=== PATIENT | female | born 1965 | race Caucasian/White ===

== ENCOUNTER 2016-09-24 19:29 | Emergency (ER) | payer MEDICAID ==
[~2016-09-24] VITALS: Ht 160 cm; Wt 50.0 kg
[~2016-09-24 19:29] MED LIST: IBUP800T PO
[2016-09-24] MEDS ORDERED: ACETAMINOPHEN 325 MG TABLET PO ONE (20:30)
[2016-09-24] MEDS ORDERED: KETOROLAC 30 MG/1 ML IVPush ONE (20:30)
[2016-09-24 20:38] LABS: HEMOGLOBIN 11.4 g/dL (11.7-16.4)
[2016-09-24 20:42] LABS: BLOOD UREA NITROGEN 24 mg/dL (7-18)
[2016-09-24] MEDS ORDERED: KETOROLAC 30 MG/1 ML ONE (20:43)
[2016-09-24] MEDS ORDERED: ACETAMINOPHEN 325 MG TABLET ONE (20:43)
[2016-09-24 21:38] VITALS: BP 98/51
[2016-09-24] MEDS ORDERED: FLUO10CA13 PO (23:17)
[2016-09-24] MEDS ORDERED: BACL-19 PO (23:17)
[2016-09-24] MEDS ORDERED: GABA300C10 PO (23:17)
== END 2016-09-24 21:39 | disposition home or self-care (01) ==
LOC: ED 20:28
DX: R56.9 Unspecified convulsions (principal); S09.90XA Unspecified injury of head, initial encounter
CPT/HCPCS: 36415; 80048; 82962; 85025; 96374; 99284; J1885

== ENCOUNTER 2016-11-19 00:05 | Emergency (ER) | payer MEDICAID ==
[~2016-11-19] VITALS: Ht 157.5 cm; Wt 49.4 kg
[~2016-11-19 00:05] MED LIST changes: +BACL-19 PO; +FLUO10CA13 PO; +GABA300C10 PO
[2016-11-19 00:08] VITALS: BP 127/82
[2016-11-19] MEDS ORDERED: LORazepam 1MG TABLET ONE (00:30)
[2016-11-19] MEDS ORDERED: HYDROcodone/APAP 5/325 TABLET PO ONE (00:30)
[2016-11-19] MEDS ORDERED: LORazepam 1MG TABLET PO ONE (00:30)
[2016-11-19] MEDS ORDERED: HYDROcodone/APAP 5/325 TABLET ONE (00:31)
[2016-11-20] MEDS ORDERED: GABA100C PO (14:05)
[2016-11-20] MEDS ORDERED: OXYC-302 PO (14:05)
[2016-11-20] MEDS ORDERED: DIAZ5TAB PO (14:05)
== END 2016-11-19 00:58 | disposition home or self-care (01) ==
LOC: ED 00:37
DX: F41.1 Generalized anxiety disorder (principal); F32.9 Major depressive disorder, single episode, unspecified; F17.210 Nicotine dependence, cigarettes, uncomplicated; F12.10 Cannabis abuse, uncomplicated; Z90.710 Acquired absence of both cervix and uterus; Z88.6 Allergy status to analgesic agent
CPT/HCPCS: 99284

== ENCOUNTER 2016-11-20 13:45 | Emergency (ER) | payer MEDICAID ==
[~2016-11-20] VITALS: Ht 152.4 cm; Wt 51.6 kg
[2016-11-20] MEDS ORDERED: DIAZ5TAB PO (14:05)
[2016-11-20] MEDS ORDERED: GABA100C PO (14:05)
[2016-11-20] MEDS ORDERED: OXYC-302 PO (14:05)
[2016-11-20] MEDS ORDERED: LORazepam 1MG TABLET ONE (14:10)
[2016-11-20 14:28] VITALS: BP 97/63
[2016-11-20] MEDS ORDERED: LORazepam 1MG TABLET PO ONE (14:30)
== END 2016-11-20 14:31 | disposition home or self-care (01) ==
LOC: ED 14:15
DX: G89.29 Other chronic pain (principal); M54.2 Cervicalgia; F41.1 Generalized anxiety disorder; F43.12 Post-traumatic stress disorder, chronic; Z59.0 Homelessness
CPT/HCPCS: 99281; 99282

== ENCOUNTER 2016-12-06 08:16 | Emergency (ER) | payer MEDICAID ==
[~2016-12-06] VITALS: Ht 157.5 cm; Wt 51.3 kg
[~2016-12-06 08:16] MED LIST changes: +DIAZ5TAB PO; +GABA100C PO; +OXYC-302 PO
[2016-12-06] MEDS ORDERED: KETOROLAC 30 MG/1 ML ONE (09:23)
[2016-12-06] MEDS ORDERED: CYCLOBENZAPRINE 10 MG TABLET ONE (09:23)
[2016-12-06] MEDS ORDERED: KETOROLAC 60 MG/2 ML IM ONE (09:30)
[2016-12-06] MEDS ORDERED: CYCLOBENZAPRINE 10 MG TABLET PO ONE (09:30)
[2016-12-06 09:50] LABS: BLOOD UREA NITROGEN 17 mg/dL (7-18)
[2016-12-06 09:55] LABS: IS PT STATUS REG ER OR PRE ER? YES
[2016-12-06 11:02] VITALS: BP 108/64
== END 2016-12-06 11:46 | disposition home or self-care (01) ==
LOC: ED 09:38
DX: R07.89 Other chest pain (principal); I25.2 Old myocardial infarction
CPT/HCPCS: 36415; 71010; 80048; 82040; 84484; 85025; 85379; 93005; 96372; 99285; J1885

== ENCOUNTER 2016-12-18 21:14 | Emergency (ER) | payer MEDICAID ==
[~2016-12-18] VITALS: Ht 157.5 cm; Wt 44.8 kg
[2016-12-18] MEDS ORDERED: SODIUM CHLORIDE FLUSH 10ML SYR IVF ONE (21:30)
[2016-12-18] MEDS ORDERED: LEVETIRACETAM 500 MG in SODIUM CHLORIDE 0.9% 100 ML IV ONE (21:30)
[2016-12-18] MEDS ORDERED: SODIUM CHLORIDE 0.9% 1,000ML IVBOLUS ONE (21:30)
[2016-12-18 21:54] LABS: ASPARTATE AMINO TRANSFERASE 16 U/L (15-37); BLOOD UREA NITROGEN 26 mg/dL (7-18)
[2016-12-18 23:39] VITALS: BP 122/64
== END 2016-12-18 23:41 | disposition home or self-care (01) ==
LOC: ED 21:22
DX: R56.9 Unspecified convulsions (principal); Z90.710 Acquired absence of both cervix and uterus
CPT/HCPCS: 36415; 70450; 80053; 80307; 85025; 93005; 96365; 96366; 99285; J1953; J7030

== ENCOUNTER 2016-12-20 17:04 | Emergency (ER) | payer MEDICAID ==
[~2016-12-20] VITALS: Ht 167.6 cm; Wt 60.0 kg
[2016-12-20] MEDS ORDERED: LEVETIRACETAM 500 MG TABLET PO SCH (17:30)
[2016-12-20] MEDS ORDERED: SODIUM CHLORIDE FLUSH 10ML SYR IVF ONE (17:30)
[2016-12-20] MEDS ORDERED: SODIUM CHLORIDE 0.9% 1,000ML IVBOLUS ONE (17:30)
[2016-12-20 17:39] LABS: BLOOD UREA NITROGEN 41 mg/dL (7-18)
[2016-12-20 18:27] VITALS: BP 107/67
== END 2016-12-20 18:45 | disposition home or self-care (01) ==
LOC: ED 18:30
DX: G40.409 Other generalized epilepsy and epileptic syndromes, not intractable, without status epilepticus (principal); E86.0 Dehydration; F17.200 Nicotine dependence, unspecified, uncomplicated; Z90.710 Acquired absence of both cervix and uterus
CPT/HCPCS: 36415; 80048; 82040; 85025; 96360; 99284; J7030

== ENCOUNTER 2017-02-06 10:48 | Emergency (ER) | payer MEDICAID ==
[~2017-02-06] VITALS: Ht 160 cm; Wt 57.0 kg
[2017-02-06] MEDS ORDERED: SODIUM CHLORIDE 0.9% 1,000 ML IV ONE (10:51)
[2017-02-06] MEDS ORDERED: LEVETIRACETAM 500 MG in SODIUM CHLORIDE 0.9% 100 ML IV ONE (11:00)
[2017-02-06] MEDS ORDERED: LORazepam 2 MG/ML, 1ML IVPush ONE (11:00)
[2017-02-06] MEDS ORDERED: PROP10TA PO (11:08)
[2017-02-06] MEDS ORDERED: BACL-19 PO (11:08)
[2017-02-06] MEDS ORDERED: SERT25TA PO (11:08)
[2017-02-06] MEDS ORDERED: TRAZ100T15 PO (11:08)
[2017-02-06] MEDS ORDERED: LEVE500T53 PO (11:08)
[2017-02-06] MEDS ORDERED: CLON1TAB PO (11:08)
[2017-02-06 11:53] LABS: HEMATOCRIT 34.1 % (34.6-47.8); HEMOGLOBIN 11.3 g/dL (11.7-16.4)
[2017-02-06 12:02] LABS: ASPARTATE AMINO TRANSFERASE 25 U/L (15-37); BLOOD UREA NITROGEN 13 mg/dL (7-18)
[2017-02-06 12:08] LABS: ACETAMINOPHEN < 2 mcg/mL (10-30)
[2017-02-06] MEDS ORDERED: SODIUM CHLORIDE 0.9%, 500ML IVBOLUS ONE (12:30)
[2017-02-06] MEDS ORDERED: LIDOCAINE 1%, 20ML ONE (13:21)
[2017-02-06] MEDS ORDERED: TRIAMCINOLONE ACETONIDE 40 MG/ML, 1ML IM ONE (13:30)
[2017-02-06 13:42] VITALS: BP 137/82
== END 2017-02-06 14:02 | disposition home or self-care (01) ==
LOC: ED 13:01
DX: R56.9 Unspecified convulsions (principal); I10 Essential (primary) hypertension; F17.200 Nicotine dependence, unspecified, uncomplicated; Z88.6 Allergy status to analgesic agent
CPT/HCPCS: 36415; 70450; 80053; 80307; 80329; 83605; 83735; 85025; 93005; 96365; 96375; 99285; J1953; J2060; J7030; G0480

== ENCOUNTER 2017-04-10 00:42 | Emergency (ER) | payer MEDICAID ==
[~2017-04-10] VITALS: Ht 157.5 cm; Wt 51.0 kg
[~2017-04-10 00:42] MED LIST changes: +CLON1TAB PO; +IBUP-1223 PO; -IBUP800T PO; +LEVE500T53 PO; +PROP10TA PO; +SERT25TA PO; +TRAZ100T15 PO
[2017-04-10] MEDS ORDERED: LORazepam 2 MG/ML, 1ML IM STA (01:34)
[2017-04-10] MEDS ORDERED: LORazepam 2 MG/ML, 1ML ONE (01:38)
[2017-04-10 03:11] VITALS: BP 117/86
== END 2017-04-10 03:48 ==
LOC: ED 02:40
DX: S20.211A Contusion of right front wall of thorax, initial encounter (principal); G40.909 Epilepsy, unspecified, not intractable, without status epilepticus; I10 Essential (primary) hypertension; F17.210 Nicotine dependence, cigarettes, uncomplicated; F43.10 Post-traumatic stress disorder, unspecified; Y04.8XXA Assault by other bodily force, initial encounter; Y93.89 Activity, other specified; Y99.8 Other external cause status; Y92.89 Other specified places as the place of occurrence of the external cause
CPT/HCPCS: 70450; 70486; 71101; 72125; 96374; 99284; J2060

== ENCOUNTER 2017-06-02 21:41 | Emergency (ER) | payer MEDICAID ==
[~2017-06-02] VITALS: Ht 157.5 cm; Wt 57.6 kg
[2017-06-02 21:42] VITALS: BP 170/93
== END 2017-06-02 22:33 | disposition home or self-care (01) ==
LOC: ED 22:09
DX: F41.1 Generalized anxiety disorder (principal); Z76.0 Encounter for issue of repeat prescription; F32.9 Major depressive disorder, single episode, unspecified; G35 Multiple sclerosis; G40.909 Epilepsy, unspecified, not intractable, without status epilepticus; I10 Essential (primary) hypertension
CPT/HCPCS: 99284

== ENCOUNTER 2017-10-24 13:14 | Observation (INO) | payer MEDICAID ==
[~2017-10-24] VITALS: Ht 157.5 cm; Wt 59.9 kg
[2017-10-24] MEDS ORDERED: LORazepam 1MG TABLET ONE ×2 (14:18→16:06)
[2017-10-24] MEDS ORDERED: LORazepam 1MG TABLET PO ONE ×2 (14:30→16:00)
[2017-10-24 14:36] LABS: BASOPHILS # (AUTO) 0.01 x10^3/uL (0-0.1); BASOPHILS % (AUTO) 0 % (0-1); EOSINOPHILS # (AUTO) 0.13 x10^3/uL (0-0.4); EOSINOPHILS % (AUTO) 3 % (1-7); LYMPHOCYTES # (AUTO) 1.02 x10^3/uL (1-3.4); LYMPHOCYTES % (AUTO) 19 % (22-44); MD NO; MEAN CORPUSCULAR HEMOGLOBIN 29.9 pg (27.0-34.8); MEAN CORPUSCULAR HGB CONC 33.3 g/dL (32.4-35.8); MEAN CORPUSCULAR VOLUME 89.9 fL (80-100); MEAN PLATELET VOLUME 6.1 fL (7.4-10.4); MONOCYTES # (AUTO) 0.32 x10^3/uL (0.2-0.8); MONOCYTES % (AUTO) 6 % (2-9); NEUTROPHILS # (AUTO) 3.84 x10^3/uL (1.8-6.8); NEUTROPHILS % (AUTO) 72 % (42-75); PLATELET COUNT 288 x10^3/uL (130-400); RED BLOOD COUNT 3.91 x10^6/uL (3.82-5.3)
[2017-10-24 14:44] LABS: ALANINE AMINOTRANSFERASE 123 U/L (12-78); ALBUMIN 3.5 g/dL (3.4-5.0); ANION GAP 9 mmol/L (5-15); CALCIUM 8.8 mg/dL (8.5-10.1); CHLORIDE 104 mmol/L (98-107); CREATININE 0.75 mg/dL (0.55-1.02)
[2017-10-24 14:46] LABS: ALKALINE PHOSPHATASE 244 U/L (45-117); BILIRUBIN,TOTAL 0.3 mg/dL (0.2-1.0); SALICYLATE LEVEL 4.5 mg/dL (2.8-20.0); TOTAL PROTEIN 6.8 g/dL (6.4-8.2)
[2017-10-24 14:54] LABS: ACETAMINOPHEN < 2 mcg/mL (10-30)
[2017-10-24 15:04] LABS: AMPHETAMINE SCREEN, URINE Positive (Negative); BARBITURATE SCREEN, URINE Negative (Negative); BENZODIAZEPINE SCREEN, URINE Negative (Negative); CANNABINOID SCREEN, URINE Positive (Negative); COCAINE SCREEN, URINE Negative (Negative); METHADONE SCREEN, URINE Negative (Negative); OPIATE SCREEN, URINE Negative (Negative)
[2017-10-24] MEDS ORDERED: QUET50TA5 PO (15:06)
[2017-10-24] MEDS ORDERED: BUSP10TA PO (15:06)
[2017-10-24] MEDS ORDERED: [UNRECOGNIZED DRUG - CODE] PO (15:06)
[2017-10-24] MEDS ORDERED: PHEN50TA4 PO (15:06)
[2017-10-24] MEDS ORDERED: ESCI20TA PO (15:06)
[2017-10-24] MEDS ORDERED: GABA800T2 PO (15:06)
[2017-10-24] MEDS ORDERED: DICL50TA4 PO (15:06)
[2017-10-24] MEDS ORDERED: CARB200T4 PO (15:06)
[2017-10-24] MEDS ORDERED: DOXE150C PO (15:06)
[2017-10-24] MEDS ORDERED: PRAZ2CAP2 PO (15:06)
[2017-10-24] MEDS ORDERED: POLYETHYLENE GLYCOL 17 GM PACKET PO PRN (20:00)
[2017-10-24] MEDS ORDERED: BISACODYL 10 MG SUPP PR PRN (20:00)
[2017-10-24] MEDS ORDERED: ACETAMINOPHEN 325 MG TABLET PO PRN (20:00)
[2017-10-24] MEDS ORDERED: ONDANSETRON ODT 4 MG PO PRN (20:00)
[2017-10-24] MEDS ORDERED: DIPHENHYDRAMINE 50 MG CAPSULE PO PRN (20:00)
[2017-10-24] MEDS: BACLOFEN 10 MG TABLET PO SCH (21:00)
[2017-10-24] MEDS: DOXEPIN 25 MG CAPSULE PO SCH (21:00)
[2017-10-24] MEDS: PRAZOSIN 2 MG CAPSULE PO SCH (21:00)
[2017-10-24] MEDS ORDERED: QUETIAPINE FUMARATE 50 MG PO SCH (21:00)
[2017-10-24] MEDS: CARBAMAZEPINE 200 MG TABLET PO SCH (21:00)
[2017-10-24] MEDS: DICLOFENAC 50 MG TABLET.DR PO SCH (21:00)
[2017-10-24] MEDS: BUSPIRONE 10 MG TABLET PO SCH (21:00)
[2017-10-24] MEDS ORDERED: TEMPLATE NON-FORMULARY MED. (Gabapentin** 800 MG) PO SCH (21:00)
[2017-10-24] MEDS: NICOTINE 7 MG/24 HR PATCH.TD24 TD SCH (23:00)
[2017-10-24] MEDS ORDERED: NICOTINE 7 MG/24 HR PATCH.TD24 ONE (23:04)
[2017-10-24] MEDS ORDERED: GABAPENTIN 400 MG CAPSULE ONE (23:07)
[2017-10-24] MEDS ORDERED: QUETIAPINE 25MG TABLET ONE (23:07)
[2017-10-25] MEDS ORDERED: CARBAMAZEPINE PO SCH (09:00)
[2017-10-25] MEDS: CITALOPRAM 20 MG TABLET PO SCH (10:06)
[2017-10-25] MEDS: SENNA/DOCUSATE TABLET PO SCH (10:06)
[2017-10-25] MEDS: BUSPIRONE 10 MG TABLET PO SCH ×2 (10:09→17:27)
[2017-10-25] MEDS: DICLOFENAC 50 MG TABLET.DR PO SCH (10:09)
[2017-10-25] MEDS: BACLOFEN 10 MG TABLET PO SCH ×2 (10:09→17:27)
[2017-10-25] MEDS: CARBAMAZEPINE 200 MG TABLET PO SCH ×2 (10:09→21:32)
[2017-10-25] MEDS ORDERED: GABAPENTIN 400 MG CAPSULE ONE (10:17)
[2017-10-25] MEDS: GABAPENTIN 400 MG CAPSULE PO SCH ×2 (10:20→17:28)
[2017-10-25] MEDS ORDERED: LORazepam 1MG TABLET ONE (13:51)
[2017-10-25] MEDS ORDERED: LORazepam 1MG TABLET PO ONE (14:00)
[2017-10-25 16:03] VITALS: BP 97/64
[2017-10-25 19:54] VITALS: BP 100/70
[2017-10-25] MEDS: DOXEPIN 25 MG CAPSULE PO SCH (21:31)
[2017-10-25] MEDS: QUETIAPINE 25MG TABLET PO SCH (21:32)
[2017-10-25] MEDS: PRAZOSIN 2 MG CAPSULE PO SCH (21:33)
[2017-10-26] MEDS: NICOTINE 7 MG/24 HR PATCH.TD24 TD SCH ×2 (00:40→21:30)
[2017-10-26] MEDS: BACLOFEN 10 MG TABLET PO SCH ×4 (00:40→21:27)
[2017-10-26] MEDS: GABAPENTIN 400 MG CAPSULE PO SCH ×4 (00:41→21:28)
[2017-10-26] MEDS: DICLOFENAC 50 MG TABLET.DR PO SCH ×3 (00:41→21:27)
[2017-10-26] MEDS: BUSPIRONE 10 MG TABLET PO SCH ×4 (00:41→21:29)
[2017-10-26 08:34] VITALS: BP 104/63
[2017-10-26] MEDS: CARBAMAZEPINE 200 MG TABLET PO SCH ×2 (08:50→21:27)
[2017-10-26] MEDS: SENNA/DOCUSATE TABLET PO SCH (08:50)
[2017-10-26] MEDS: LORazepam 1MG TABLET PO PRN ×2 (08:50→17:04)
[2017-10-26] MEDS: CITALOPRAM 20 MG TABLET PO SCH (09:43)
[2017-10-26 19:55] VITALS: BP 128/68
[2017-10-26] MEDS: DOXEPIN 25 MG CAPSULE PO SCH (21:26)
[2017-10-26] MEDS: QUETIAPINE 25MG TABLET PO SCH (21:27)
[2017-10-26] MEDS: PRAZOSIN 2 MG CAPSULE PO SCH (21:28)
[2017-10-27] MEDS: BACLOFEN 10 MG TABLET PO SCH ×3 (08:10→21:24)
[2017-10-27] MEDS: DICLOFENAC 50 MG TABLET.DR PO SCH ×2 (08:10→21:25)
[2017-10-27] MEDS: CITALOPRAM 20 MG TABLET PO SCH (08:10)
[2017-10-27] MEDS: GABAPENTIN 400 MG CAPSULE PO SCH ×3 (08:10→21:25)
[2017-10-27] MEDS: BUSPIRONE 10 MG TABLET PO SCH ×3 (08:10→21:25)
[2017-10-27] MEDS: CARBAMAZEPINE 200 MG TABLET PO SCH ×2 (08:11→21:25)
[2017-10-27] MEDS: SENNA/DOCUSATE TABLET PO SCH (08:11)
[2017-10-27] MEDS: LORazepam 1MG TABLET PO PRN ×2 (08:13→16:26)
[2017-10-27 08:15] VITALS: BP 113/73
[2017-10-27] MEDS: NICOTINE 7 MG/24 HR PATCH.TD24 TD SCH (20:00)
[2017-10-27 20:31] VITALS: BP 100/61
[2017-10-27] MEDS: DOXEPIN 25 MG CAPSULE PO SCH (21:24)
[2017-10-27] MEDS: QUETIAPINE 25MG TABLET PO SCH (21:25)
[2017-10-27] MEDS: PRAZOSIN 2 MG CAPSULE PO SCH (21:25)
[2017-10-28 07:58] VITALS: BP 110/61
[2017-10-28] MEDS: LORazepam 1MG TABLET PO PRN ×2 (08:08→16:28)
[2017-10-28] MEDS: DICLOFENAC 50 MG TABLET.DR PO SCH ×2 (08:08→20:31)
[2017-10-28] MEDS: BUSPIRONE 10 MG TABLET PO SCH ×3 (08:08→20:30)
[2017-10-28] MEDS: GABAPENTIN 400 MG CAPSULE PO SCH ×3 (08:08→20:31)
[2017-10-28] MEDS: CARBAMAZEPINE 200 MG TABLET PO SCH ×2 (08:08→20:33)
[2017-10-28] MEDS: BACLOFEN 10 MG TABLET PO SCH ×3 (08:08→20:30)
[2017-10-28] MEDS: CITALOPRAM 20 MG TABLET PO SCH (08:08)
[2017-10-28] MEDS: SENNA/DOCUSATE TABLET PO SCH (08:09)
[2017-10-28 20:18] VITALS: BP 140/96
[2017-10-28] MEDS: NICOTINE 7 MG/24 HR PATCH.TD24 TD SCH (20:22)
[2017-10-28] MEDS: QUETIAPINE 25MG TABLET PO SCH (20:32)
[2017-10-28] MEDS: PRAZOSIN 2 MG CAPSULE PO SCH (20:47)
[2017-10-28] MEDS: DOXEPIN 25 MG CAPSULE PO SCH (21:00)
[2017-10-29 08:00] VITALS: BP 98/64
[2017-10-29] MEDS: BUSPIRONE 10 MG TABLET PO SCH ×3 (08:08→20:24)
[2017-10-29] MEDS: CITALOPRAM 20 MG TABLET PO SCH (08:08)
[2017-10-29] MEDS: CARBAMAZEPINE 200 MG TABLET PO SCH ×2 (08:09→20:26)
[2017-10-29] MEDS: BACLOFEN 10 MG TABLET PO SCH ×3 (08:09→20:24)
[2017-10-29] MEDS: SENNA/DOCUSATE TABLET PO SCH (08:09)
[2017-10-29] MEDS: GABAPENTIN 400 MG CAPSULE PO SCH ×3 (08:09→20:25)
[2017-10-29] MEDS: DICLOFENAC 50 MG TABLET.DR PO SCH ×2 (08:09→20:26)
[2017-10-29] MEDS: LORazepam 1MG TABLET PO PRN ×2 (08:13→18:13)
[2017-10-29 19:49] VITALS: BP 100/64
[2017-10-29] MEDS: NICOTINE 7 MG/24 HR PATCH.TD24 TD SCH (19:54)
[2017-10-29] MEDS: PRAZOSIN 2 MG CAPSULE PO SCH (20:25)
[2017-10-29] MEDS: QUETIAPINE 25MG TABLET PO SCH (20:26)
[2017-10-29] MEDS: DOXEPIN 25 MG CAPSULE PO SCH (20:29)
[2017-10-30 07:45] VITALS: BP 145/82
[2017-10-30] MEDS: DICLOFENAC 50 MG TABLET.DR PO SCH ×2 (08:44→20:20)
[2017-10-30] MEDS: SENNA/DOCUSATE TABLET PO SCH (08:44)
[2017-10-30] MEDS: CARBAMAZEPINE 200 MG TABLET PO SCH ×2 (08:44→20:20)
[2017-10-30] MEDS: GABAPENTIN 400 MG CAPSULE PO SCH ×3 (08:44→20:18)
[2017-10-30] MEDS: CITALOPRAM 20 MG TABLET PO SCH (08:44)
[2017-10-30] MEDS: BUSPIRONE 10 MG TABLET PO SCH ×3 (08:44→20:16)
[2017-10-30] MEDS: BACLOFEN 10 MG TABLET PO SCH ×3 (08:44→20:17)
[2017-10-30] MEDS: LORazepam 1MG TABLET PO PRN (09:48)
[2017-10-30 19:45] VITALS: BP 116/78
[2017-10-30] MEDS: NICOTINE 7 MG/24 HR PATCH.TD24 TD SCH (19:59)
[2017-10-30] MEDS: PRAZOSIN 2 MG CAPSULE PO SCH (20:17)
[2017-10-30] MEDS: DOXEPIN 25 MG CAPSULE PO SCH (20:19)
[2017-10-30] MEDS: QUETIAPINE 25MG TABLET PO SCH (20:23)
[2017-10-31 06:48] LABS: ALANINE AMINOTRANSFERASE 33 U/L (12-78); ALBUMIN 3.4 g/dL (3.4-5.0); ANION GAP 4 mmol/L (5-15); CALCIUM 9.1 mg/dL (8.5-10.1); CHLORIDE 105 mmol/L (98-107); CREATININE 0.83 mg/dL (0.55-1.02)
[2017-10-31 06:51] LABS: ALKALINE PHOSPHATASE 177 U/L (45-117); BILIRUBIN,TOTAL 0.2 mg/dL (0.2-1.0); TOTAL PROTEIN 7.2 g/dL (6.4-8.2)
[2017-10-31 07:35] VITALS: BP 91/46
[2017-10-31 08:40] VITALS: BP 116/80
[2017-10-31] MEDS: DICLOFENAC 50 MG TABLET.DR PO SCH ×2 (09:01→21:38)
[2017-10-31] MEDS: CARBAMAZEPINE 200 MG TABLET PO SCH ×2 (09:01→21:38)
[2017-10-31] MEDS: BUSPIRONE 10 MG TABLET PO SCH ×3 (09:01→21:38)
[2017-10-31] MEDS: BACLOFEN 10 MG TABLET PO SCH ×3 (09:01→21:37)
[2017-10-31] MEDS: CITALOPRAM 20 MG TABLET PO SCH (09:02)
[2017-10-31] MEDS: SENNA/DOCUSATE TABLET PO SCH (09:02)
[2017-10-31] MEDS: GABAPENTIN 400 MG CAPSULE PO SCH ×3 (09:02→21:37)
[2017-10-31] MEDS: LORazepam 1MG TABLET PO PRN (15:44)
[2017-10-31] MEDS ORDERED: SODIUM POLYSTYRENE SULFONATE ORAL SUSP PO ONE (19:00)
[2017-10-31 19:41] LABS: ANION GAP 6 mmol/L (5-15); CHLORIDE 108 mmol/L (98-107); CREATININE 0.73 mg/dL (0.55-1.02)
[2017-10-31 19:47] VITALS: BP_SYST 109; BP_SYST 132; BP_DIAS 72; BP_DIAS 85
[2017-10-31] MEDS: NICOTINE 7 MG/24 HR PATCH.TD24 TD SCH (21:37)
[2017-10-31] MEDS: DOXEPIN 25 MG CAPSULE PO SCH (21:37)
[2017-10-31] MEDS: PRAZOSIN 2 MG CAPSULE PO SCH (21:38)
[2017-10-31] MEDS: QUETIAPINE 25MG TABLET PO SCH (21:39)
[2017-11-01 04:46] LABS: ANION GAP 6 mmol/L (5-15); CALCIUM 8.8 mg/dL (8.5-10.1); CHLORIDE 104 mmol/L (98-107); CREATININE 0.68 mg/dL (0.55-1.02)
[2017-11-01 07:43] VITALS: BP 118/68
[2017-11-01] MEDS: BACLOFEN 10 MG TABLET PO SCH ×3 (08:02→20:53)
[2017-11-01] MEDS: CITALOPRAM 20 MG TABLET PO SCH (08:02)
[2017-11-01] MEDS: GABAPENTIN 400 MG CAPSULE PO SCH ×3 (08:02→20:53)
[2017-11-01] MEDS: CARBAMAZEPINE 200 MG TABLET PO SCH ×2 (08:02→20:55)
[2017-11-01] MEDS: DICLOFENAC 50 MG TABLET.DR PO SCH ×2 (08:02→20:55)
[2017-11-01] MEDS: SENNA/DOCUSATE TABLET PO SCH (08:03)
[2017-11-01] MEDS: BUSPIRONE 10 MG TABLET PO SCH ×3 (08:03→20:52)
[2017-11-01] MEDS: LORazepam 1MG TABLET PO PRN (08:21)
[2017-11-01 20:00] VITALS: BP 129/72
[2017-11-01] MEDS: NICOTINE 7 MG/24 HR PATCH.TD24 TD SCH (20:00)
[2017-11-01] MEDS: DOXEPIN 25 MG CAPSULE PO SCH (20:54)
[2017-11-01] MEDS: QUETIAPINE 25MG TABLET PO SCH (20:54)
[2017-11-01] MEDS: PRAZOSIN 2 MG CAPSULE PO SCH (20:57)
[2017-11-02 07:40] VITALS: BP 152/75
[2017-11-02] MEDS: CITALOPRAM 20 MG TABLET PO SCH (08:42)
[2017-11-02] MEDS: CARBAMAZEPINE 200 MG TABLET PO SCH ×2 (08:42→20:29)
[2017-11-02] MEDS: DICLOFENAC 50 MG TABLET.DR PO SCH ×2 (08:42→20:30)
[2017-11-02] MEDS: LORazepam 1MG TABLET PO PRN ×2 (08:42→17:31)
[2017-11-02] MEDS: SENNA/DOCUSATE TABLET PO SCH (08:44)
[2017-11-02] MEDS: BACLOFEN 10 MG TABLET PO SCH ×3 (08:44→20:27)
[2017-11-02] MEDS: BUSPIRONE 10 MG TABLET PO SCH ×3 (08:44→20:27)
[2017-11-02] MEDS: GABAPENTIN 400 MG CAPSULE PO SCH ×3 (08:44→20:28)
[2017-11-02 19:30] VITALS: BP 120/73
[2017-11-02] MEDS: NICOTINE 7 MG/24 HR PATCH.TD24 TD SCH (19:31)
[2017-11-02] MEDS: PRAZOSIN 2 MG CAPSULE PO SCH (20:27)
[2017-11-02] MEDS: QUETIAPINE 25MG TABLET PO SCH (20:28)
[2017-11-02] MEDS: DOXEPIN 25 MG CAPSULE PO SCH (20:29)
[2017-11-03] MEDS: LORazepam 1MG TABLET PO PRN ×2 (03:05→09:24)
[2017-11-03 08:25] VITALS: BP 123/67
[2017-11-03] MEDS: CARBAMAZEPINE 200 MG TABLET PO SCH (09:24)
[2017-11-03] MEDS: BUSPIRONE 10 MG TABLET PO SCH (09:24)
[2017-11-03] MEDS: CITALOPRAM 20 MG TABLET PO SCH (09:24)
[2017-11-03] MEDS: DICLOFENAC 50 MG TABLET.DR PO SCH (09:24)
[2017-11-03] MEDS: GABAPENTIN 400 MG CAPSULE PO SCH (09:24)
[2017-11-03] MEDS: SENNA/DOCUSATE TABLET PO SCH (09:24)
[2017-11-03] MEDS: BACLOFEN 10 MG TABLET PO SCH (09:24)
== END 2017-11-03 16:40 | disposition home or self-care (01) ==
LOC: ED 18:39 → EDIP 19:06 → 3E 10-25 15:20
PROVIDERS: ADMIT Internal Medicine; ATTEND Internal Medicine
DX: R45.851 Suicidal ideations (principal); F31.9 Bipolar disorder, unspecified; R00.0 Tachycardia, unspecified; R74.0 Nonspecific elevation of levels of transaminase and lactic acid dehydrogenase [LDH]; F12.10 Cannabis abuse, uncomplicated; F15.10 Other stimulant abuse, uncomplicated; I10 Essential (primary) hypertension; G40.909 Epilepsy, unspecified, not intractable, without status epilepticus; Z59.0 Homelessness; F17.210 Nicotine dependence, cigarettes, uncomplicated; Z91.14 Patient's other noncompliance with medication regimen; Z90.710 Acquired absence of both cervix and uterus
CPT/HCPCS: 36415; 71045; 80048; 80053; 80074; 80307; 80329; 84703; 85025; 87521; 87806; 93005; 99285; G0378; G0475; G0480

== ENCOUNTER 2017-11-05 12:51 | Emergency (ER) | payer MEDICAID ==
[~2017-11-05] VITALS: Ht 162.6 cm; Wt 60.0 kg
[~2017-11-05 12:51] MED LIST changes: +BUSP10TA PO; +CARB200T4 PO; +DICL50TA4 PO; +DOXE150C PO; +ESCI20TA PO; +GABA800T2 PO; +PHEN50TA4 PO; +PRAZ2CAP2 PO; +QUET50TA5 PO; +[UNRECOGNIZED DRUG - CODE] PO
[2017-11-05 13:25] LABS: BASOPHILS # (AUTO) 0.02 x10^3/uL (0-0.1); BASOPHILS % (AUTO) 0 % (0-1); EOSINOPHILS # (AUTO) 0.07 x10^3/uL (0-0.4); EOSINOPHILS % (AUTO) 1 % (1-7); LYMPHOCYTES # (AUTO) 1.63 x10^3/uL (1-3.4); LYMPHOCYTES % (AUTO) 26 % (22-44); MD NO; MEAN CORPUSCULAR HEMOGLOBIN 29.7 pg (27.0-34.8); MEAN CORPUSCULAR HGB CONC 33.3 g/dL (32.4-35.8); MEAN CORPUSCULAR VOLUME 89.1 fL (80-100); MEAN PLATELET VOLUME 6.8 fL (7.4-10.4); MONOCYTES # (AUTO) 0.35 x10^3/uL (0.2-0.8); MONOCYTES % (AUTO) 6 % (2-9); NEUTROPHILS # (AUTO) 4.27 x10^3/uL (1.8-6.8); NEUTROPHILS % (AUTO) 67 % (42-75); PLATELET COUNT 304 x10^3/uL (130-400); RED BLOOD COUNT 4.16 x10^6/uL (3.82-5.3); RED CELL DISTRIBUTION WIDTH 12.8 % (9.6-15.2)
[2017-11-05 13:38] LABS: ALANINE AMINOTRANSFERASE 27 U/L (12-78); ALBUMIN 3.9 g/dL (3.4-5.0); ANION GAP 9 mmol/L (5-15); CALCIUM 9.1 mg/dL (8.5-10.1); CHLORIDE 106 mmol/L (98-107); CREATININE 1.02 mg/dL (0.55-1.02)
[2017-11-05 13:41] LABS: ALKALINE PHOSPHATASE 156 U/L (45-117); BILIRUBIN,TOTAL 0.2 mg/dL (0.2-1.0); TOTAL PROTEIN 7.5 g/dL (6.4-8.2)
[2017-11-05] MEDS ORDERED: PHENYTOIN SODIUM 1,000 MG in SODIUM CHLORIDE 0.9% 100 ML IVPB ONE (15:30)
[2017-11-05] MEDS ORDERED: FILTER 0.22 MICRON IV ONE (16:00)
[2017-11-05 20:48] VITALS: BP 98/85
== END 2017-11-05 23:36 | disposition home or self-care (01) ==
LOC: ED 15:44
DX: G40.309 Generalized idiopathic epilepsy and epileptic syndromes, not intractable, without status epilepticus (principal); F15.10 Other stimulant abuse, uncomplicated; F32.9 Major depressive disorder, single episode, unspecified; F43.10 Post-traumatic stress disorder, unspecified; I10 Essential (primary) hypertension
CPT/HCPCS: 36415; 80053; 80185; 85025; 93005; 96365; 99285; J1165

== ENCOUNTER 2017-11-29 08:26 | Emergency (ER) | payer MEDICAID ==
[~2017-11-29] VITALS: Ht 157.5 cm; Wt 55.0 kg
[2017-11-29 08:28] VITALS: BP 154/88
[2017-11-29 09:23] LABS: BASOPHILS # (AUTO) 0.02 x10^3/uL (0-0.1); BASOPHILS % (AUTO) 0 % (0-1); EOSINOPHILS # (AUTO) 0.09 x10^3/uL (0-0.4); EOSINOPHILS % (AUTO) 1 % (1-7); LYMPHOCYTES # (AUTO) 1.15 x10^3/uL (1-3.4); LYMPHOCYTES % (AUTO) 12 % (22-44); MD NO; MEAN CORPUSCULAR HEMOGLOBIN 29.6 pg (27.0-34.8); MEAN CORPUSCULAR HGB CONC 33.5 g/dL (32.4-35.8); MEAN CORPUSCULAR VOLUME 88.3 fL (80-100); MONOCYTES % (AUTO) 4 % (2-9); NEUTROPHILS # (AUTO) 7.84 x10^3/uL (1.8-6.8); NEUTROPHILS % (AUTO) 83 % (42-75); PLATELET COUNT 658 x10^3/uL (130-400); RED BLOOD COUNT 3.87 x10^6/uL (3.82-5.3); RED CELL DISTRIBUTION WIDTH 12.8 % (9.6-15.2)
[2017-11-29 09:34] LABS: ALBUMIN 3.2 g/dL (3.4-5.0); ANION GAP 7 mmol/L (5-15); CALCIUM 8.9 mg/dL (8.5-10.1); CHLORIDE 106 mmol/L (98-107); CREATININE 0.68 mg/dL (0.55-1.02)
[2017-11-29 10:03] LABS: AMPHETAMINE SCREEN, URINE Negative (Negative); BARBITURATE SCREEN, URINE Negative (Negative); BENZODIAZEPINE SCREEN, URINE Negative (Negative); CANNABINOID SCREEN, URINE Positive (Negative); COCAINE SCREEN, URINE Negative (Negative); METHADONE SCREEN, URINE Negative (Negative); OPIATE SCREEN, URINE Negative (Negative)
== END 2017-11-29 10:18 | disposition home or self-care (01) ==
LOC: ED 09:10
DX: G40.409 Other generalized epilepsy and epileptic syndromes, not intractable, without status epilepticus (principal); F15.129 Other stimulant abuse with intoxication, unspecified; G89.29 Other chronic pain; I10 Essential (primary) hypertension; Z91.14 Patient's other noncompliance with medication regimen
CPT/HCPCS: 36415; 80048; 80307; 82040; 85025; 93005; 99285